=== PATIENT | female | born 2000 | race Two or more races ===

== ENCOUNTER → 2025-02-20 | Outpatient (CLI) | payer MEDICAID, SELFPAY ==
--- NOTE | 2025-02-20 13:00 | XR_ITS ---
Examination: Ultrasound soft tissue neck TECHNIQUE: Grayscale sonographic images soft tissue neck Date and time: February 20, 2025 1339 hours INDICATIONS: Upper left neck tenderness and palpable lump 3 months FINDINGS: Multiple lymph nodes at the area concern, the largest 2.8 x 1.0 cm IMPRESSION: Small lymph nodes at the area concern, the largest 2.8 x 0.8 x 1.0 cm, consider CT soft tissue neck post intravenous contrast follow-up
== END | disposition home or self-care (01) ==
LOC: CDIM 12:49
PROVIDERS: Referring Provider Nurse Practitioner Family; Visit Provider Nurse Practitioner Family
DX: R09.89 Other specified symptoms and signs involving the circulatory and respiratory systems (principal); R22.1 Localized swelling, mass and lump, neck
CPT/HCPCS: 76536

== ENCOUNTER → 2025-04-16 | Outpatient (CLI) | payer BC, SELFPAY ==
--- NOTE | 2025-04-16 14:30 | XR_ITS ---
Examination: CT soft tissue neck, with intravenous contrast. CT soft tissue neck without intravenous contrast 2-D coronal reconstructions. 2-D sagittal reconstructions. Date and time of exam :April 16, 2025 1525 hours INDICATIONS: Left neck discomfort 2 months, small lymph nodes upper left neck on ultrasound soft tissue neck February 20, 2025. CTDI: vol (mGy):42.8 DLP: (mGycm):1048 Technique: 1.25 mm axial sections of the neck of the obtained. Pre and postcontrast Coronal and sagittal reconstructions have been obtained. Intravenous contrast administered 60 cc Isovue-[id number]. Low dose protocols were performed. One or more of the following dose reduction techniques were used; automated exposure control, adjustment of the mA and/or KV according to patient size, use of iterative reconstruction technique. Findings: 15 mm retention cyst left maxillary antrum Symmetrical nasopharynx oropharynx Asymmetric larger right submandibular gland but no inflammatory change No pathologic lymphadenopathy The larynx appears normal Normal epiglottis Thyroid lobes are not enlarged Lung apices are clear No prevertebral soft tissue prominence IMPRESSION: Asymmetric larger right submandibular gland which may relate to sialadenitis, clinical correlation advised 15 mm retention cyst left maxillary antrum No pathologic lymphadenopathy
[2025-04-16 14:49] LABS: HCG Qualitative,Urine Negative
== END | disposition home or self-care (01) ==
PROVIDERS: PCP Nurse Practitioner Family; Referring Provider Nurse Practitioner Family; Visit Provider Nurse Practitioner Family
DX: K11.20 Sialoadenitis, unspecified (principal); M27.40 Unspecified cyst of jaw; Z32.00 Encounter for pregnancy test, result unknown
CPT/HCPCS: 70492; 81025; A4649; Q9967